=== PATIENT | female | born 1945 | race Caucasian/White ===

== ENCOUNTER 2017-03-29 07:58 | Day surgery (SDC) | payer MEDICARE, OTHER ==
[~2017-03-29 07:58] MED LIST: ACET-868 PO; ALBU18HF2 IH; ASCO500T9 PO; ASPI325T2 PO; ATOR80TA PO; BISA10SU8 RC; DOCU-270 PO; FERR325T28 PO; HYDR-548 PO; IPRA0.2S18 IH; ISOS10TA2 PO; LACT10SO6 PO; LEVA0.6320 IH; LORA-258 PO; LORA10TA64 PO; MAGN400O6 PO; METO25TA6 PO; NA P133E RC; SENN8.6C5 PO
[2017-03-29] MEDS ORDERED: TRIAMCINOLONE ACETONIDE SUSP 40 MG/ML 1 ML ONE (09:00)
[2017-03-29] MEDS ORDERED: IOHEXOL 240MG/ML 50 ML IV ONE (09:00)
[2017-03-29] MEDS ORDERED: BUPIVACAINE 0.25% 75 MG/30 ML VIAL ONE (09:00)
[2017-03-29 09:26] LABS: CALCIUM, SERUM 8.7 mg/dL (8.5-10.1); CREATININE 0.7 mg/dL (0.6-1.3); POTASSIUM 3.9 mmol/L (3.5-5.1)
[2017-03-29 09:33] LABS: HEMATOCRIT 47 % (33-45); MEAN CORPUSCULAR HEMOGLOBIN 23 PG (26.0-33.0); MEAN CORPUSCULAR HGB CONC 32 g/dl (31.0-36.0); MEAN CORPUSCULAR VOLUME 71 fL (82-100); PLATELET COUNT (AUTO) 228 /CMM (150-450); RDW COEFFICIENT OF VARIATION 16.4 (11.5-15.0); RED BLOOD CELL COUNT(AUTO) 6.65 MIL/uL (4.0-5.2); WHITE BLOOD COUNT (AUTO) 7.3 K/uL (4.3-11.0)
[2017-03-29] MEDS ORDERED: IV SET PRIMARY 1 EA INFUS.SET MC ONE (09:37)
[2017-03-29] MEDS ORDERED: IV LR 1000 ML 1,000 ML ONE (09:37)
[2017-03-29] MEDS ORDERED: methylPREDNISolone ACETATE 80 MG/ML VIAL ONE (09:46)
[2017-03-29 10:00] LABS: EOSINOPHILS % (MANUAL) 4 % (0-4); LYMPHOCYTES % (MANUAL) 38 % (16-48); MONOCYTES % (MANUAL) 9 % (0-11.0); NEUTROPHILS % (MANUAL) 49 (42-76)
== END 2017-03-29 12:31 | disposition home health service (06) ==
LOC: DS 07:58
PROVIDERS: ATTEND Physical Medicine & Rehabilitation Pain Medicine
DX: M47.817 Spondylosis without myelopathy or radiculopathy, lumbosacral region (principal); J44.9 Chronic obstructive pulmonary disease, unspecified; F17.290 Nicotine dependence, other tobacco product, uncomplicated; I50.9 Heart failure, unspecified; I48.91 Unspecified atrial fibrillation; K21.9 Gastro-esophageal reflux disease without esophagitis; I10 Essential (primary) hypertension
CPT/HCPCS: 36415; 71010-TC; 72020-TC; 80048-TC; 85025-TC; 85730-TC; A6402; J1040; J2704; J3490; J7120; Q9966